=== PATIENT | female | born 1935 | race Caucasian/White ===

== ENCOUNTER 2018-03-10 18:55 | Outpatient (CLI) | payer MEDICARE | END 2018-03-10 18:56 | disposition critical access hospital (66) | LOC: EMS 18:55 | PROVIDERS: ATTEND Surgery | DX: M54.5 Low back pain (principal); R51 Headache; W01.198A Fall on same level from slipping, tripping and stumbling with subsequent striking against other object, initial encounter; Y92.039 Unspecified place in apartment as the place of occurrence of the external cause | CPT/HCPCS: A0425; A0429 ==

== ENCOUNTER 2018-03-10 19:12 | Emergency (ER) | payer MEDICARE, OTHER ==
--- NOTE | 2018-03-10 19:31 | ED Physician Documentation ---
History of Present Illness - Stated complaint Stated Complaint: GLF - HIT HEAD - Chief complaint Chief Complaint: Trauma Hd/Nk - History obtained from History obtained from: Patient, EMS - History of Present Illness Timing: Today Pain level max: 5 Pain level now: 2 - Additonal information Additional information: 82-year-old female presents to the emergency department after a ground-level fall today, striking her head on a 4 x 4. Has a laceration to the forehead. No loss of consciousness. No vomiting. Better with rest and worse with movement. No other injuries Review of Systems Ten Systems: 10 systems reviewed and negative Constitutional: denies: Fever Ears: denies: Ear pain Nose: denies: Rhinorrhea / runny nose, Congestion Throat: denies: Sore throat Respiratory: denies: Cough GI: denies: Abdominal Pain, Nausea, Vomiting, Diarrhea Skin: denies: Rash Musculoskeletal: denies: Neck pain, Back pain, Extremity pain Neurologic: denies: Syncope, Seizure PD PAST MEDICAL HISTORY - Past Medical History Past Medical History: Yes Other Past Medical History: deaf - Present Medications Home Medications: Ambulatory Orders Medication Instructions Recorded Confirmed No Known Home Medications 03/10/18 03/10/18 - Allergies Allergies/Adverse Reactions: Allergies Allergy/AdvReac Type Severity Reaction Status Date / Time No Known Drug Allergies Allergy Verified 03/10/18 19:55 - Living Situation Living Arrangement: reports: At home - Social History Does the pt smoke?: No Does the pt have substance abuse?: No - Family History Family history: reports: Non contributory - Immunizations Immunizations are current?: Yes Immunizations: TDAP current <10years PD ED PE NORMAL - Vitals Vital signs reviewed: Yes - General General: Alert and oriented X 3, No acute distress - HEENT HEENT: PERRL, EOMI, Ears normal, Moist mucous membranes, Pharynx benign, Other (Laceration to forehead. Abrasion from chin up the face to the forehead. No bony tenderness over the face. No scalp hematomas) - Neck Neck: Supple, no meningeal sign, No bony TTP - Cardiac Cardiac: RRR - Respiratory Respiratory: No respiratory distress, Clear bilaterally - Abdomen Abdomen: Soft, Non tender, Non distended - Back Back: No spinal TTP - Derm Derm: Warm and dry - Extremities Extremities: No deformity, No tenderness to palpate - Neuro Neuro: Alert and oriented X 3, fagot heater helper 2-12 intact, No motor deficit, No sensory def icit, Normal speech - Psych Psych: Normal mood, Normal affect Results - Vitals Vitals: Oxygen O2 Source Room air - Rads (name of study) head CT Radiology: Prelim report reviewed, EMP read contemporaneously, See rad report (no acute abnormality) Procedures - Laceration (location) forehead Length in cm: 2 Wound type: Linear, Superficial Neurovascular status: Sensory intact, Motor intact, Vascular intact Wound Preparation: Irrigated copiously NS, Wound explored, To the base. No: FB identified Skin layer closure: Dermabond, Steri strips Other: Patient tolerated well, No complications, Neurovascular intact Complexity: Simple PD MEDICAL DECISION MAKING - ED course Complexity details: reviewed results, re-evaluated patient, considered differential, d/w patient, d/w family ED course: No acute findings on head CT. GCS 15. Forehead laceration repaired. Ambulating in the emergency department without difficulty. Head injury instructions given at bedside to family. Warnings of infection and instructions on wound care given at bedside. Also counseled on how to minimize scarring. Patient and family counseled regarding signs and symptoms for which I believe and urgent re-evaluation would be necessary. Patient with good understanding of and agreement to plan and is comfortable going home at this time This document was made in part using voice recognition software. While efforts are made to proofread this document, sound alike and grammatical errors may occur. Departure - Departure Disposition: 01 Home, Self Care Clinical Impression: Head injury Qualifiers: Encounter type: initial encounter Qualified Code(s): S09.90XA - Unspecified injury of head, initial encounter Forehead laceration Qualifiers: Encounter type: initial encounter Qualified Code(s): S01.81XA - Laceration without foreign body of other part of head, initial encounter Condition: Good Instructions: ED Head Injury Closed, ED Laceration Facial Skin Glue Follow-Up: your,doctor in 1week [Other] Comments: Follow-up with your doctor in 1 week for a wound check. Return if you worsen. Discharge Date/Time: 03/10/18 21:15
--- NOTE | 2018-03-10 20:33 | CT Report ---
Reason: fall, head injury Procedure Date: 03/10/2018 Accession Number: [id number] / [id number] Procedure: CT - Head W/O CPT Code: FULL RESULT: EXAM: CT HEAD EXAM DATE: 03/10/2018 07:35 PM. CLINICAL HISTORY: Fall, head injury. COMPARISON: None. TECHNIQUE: Multiaxial CT images were obtained from the foramen magnum to the vertex. Reformats: Sagittal and coronal. IV contrast: None. In accordance with CT protocol optimization, one or more of the following dose reduction techniques were utilized for this exam: automated exposure control, adjustment of mA and/or KV based on patient size, or use of iterative reconstructive technique. FINDINGS: Parenchyma: No intraparenchymal hemorrhage. No evidence of mass, midline shift, or CT findings of infarction. Nava-white differentiation is distinct. Extraaxial Spaces: Normal for age. No subdural or epidural collections identified. Ventricles: Normal in size and position. Sinuses and Orbits: Imaged paranasal sinuses, orbits, and mastoids show no significant abnormality. Bones: No evidence of fracture or calvarial defect. Other: There is a mild contusion of the frontal scalp. IMPRESSION: No acute intracranial abnormality. RADIA
[2018-03-10 21:15] VITALS: BP 136/117
== END 2018-03-10 21:15 | disposition home or self-care (01) ==
LOC: ED 19:12
DX: S09.90XA Unspecified injury of head, initial encounter (principal); S01.81XA Laceration without foreign body of other part of head, initial encounter; W18.30XA Fall on same level, unspecified, initial encounter; W22.8XXA Striking against or struck by other objects, initial encounter
CPT/HCPCS: 12011; 70450; 99283

== ENCOUNTER 2018-05-13 14:55 | Emergency (ER) | payer MEDICARE ==
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
[2018-05-13 15:36] LABS: BASOPHILS % (AUTO) 0.7 %; EOSINOPHILS # (AUTO) 0.2 10^3/uL (0.0-0.7); HGB - HEMOGLOBIN 14.7 g/dL (12.0-16.0); LYMPHOCYTES # (AUTO) 1.2 10^3/uL (1.5-3.5); LYMPHOCYTES % (AUTO) 18.6 %; MEAN CORPUSCULAR HEMOGLOBIN 31.9 pg (27.0-31.0); MEAN CORPUSCULAR HGB CONC 33.8 g/dL (32.0-36.0); MEAN CORPUSCULAR VOLUME 94.3 fL (81.0-99.0); MONOCYTES # (AUTO) 0.4 10^3/uL (0.0-1.0); MONOCYTES % (AUTO) 6.5 %; NEUTROPHILS # (AUTO) 4.6 10^3/uL (1.5-6.6); NEUTROPHILS % (AUTO) 71.2 %; PLT - PLATELET COUNT 205 10^3/uL (130-450); RED BLOOD COUNT 4.61 10^6/uL (4.20-5.40); RED CELL DISTRIBUTION WIDTH 13.7 % (12.0-15.0); WHITE BLOOD COUNT 6.4 x10^3/uL (4.8-10.8)
[2018-05-13 15:46] LABS: ALBUMIN 3.9 g/dL (3.2-5.5); ALBUMIN/GLOBULIN RATIO 1.2 (1.0-2.2); BILIRUBIN,TOTAL 1.7 mg/dL (0.2-1.0); CALCIUM 9.6 mg/dL (8.5-10.3); CREATININE 0.8 mg/dL (0.4-1.0); TOTAL PROTEIN 7.1 g/dL (6.7-8.2)
[2018-05-13 16:00] LABS: MUDS CUTOFF CONCENTRATIONS CUTOFF CONC BELOW:
[2018-05-13 16:02] LABS: BILIRUBIN,URINE NEGATIVE (NEGATIVE); GLUCOSE, URINE (UA) NEGATIVE (NEGATIVE); KETONES,URINE (UA) TRACE mg/dL (NEGATIVE); LEUKOCYTE ESTERASE, URINE SMALL (NEGATIVE); NITRITE,URINE NEGATIVE (NEGATIVE); OCCULT BLOOD,URINE LARGE (NEGATIVE); PROTEIN,URINE 100 mg/dL (NEGATIVE); UROBILINOGEN,URINE 0.2 (NORMAL) E.U./dL (NORMAL)
[2018-05-13 16:03] LABS: CLARITY,URINE SL. CLOUDY (CLEAR)
[2018-05-13 16:13] LABS: BACTERIA,URINE Rare /HPF (None Seen); CASTS, URINE 6-10 Hyaline Casts /LPF; CRYSTALS,URINE 6-10 Calcium Oxalate /LPF; MUCUS,URINE Few Strands; RBC,URINE 0-5 /HPF (0-5); SQUAMOUS EPITHELIAL CELL,UR FEW Squamous (<= Few)
[2018-05-13 16:20] LABS: AMPHETAMINE SCREEN,URINE NEGATIVE (NEGATIVE); BENZODIAZEPINES SCREEN, URINE NEGATIVE (NEGATIVE); COCAINE SCREEN URINE NEGATIVE (NEGATIVE); METHADONE SCREEN, URINE NEGATIVE (NEGATIVE); METHAMPHETAMINES SCREEN, URINE NEGATIVE (NEGATIVE); OPIATE SCREEN, URINE NEGATIVE (NEGATIVE); OXYCODONE SCREEN, URINE NEGATIVE (NEGATIVE); PROPOXYPHENE SCREEN, URINE NEGATIVE (NEGATIVE); TRICYCLIC ANTIDEPRESSANT,URINE NEGATIVE (NEGATIVE)
[2018-05-13] MEDS ORDERED: NITROFURANTOIN MACRO 100 MG CAPSULE PO STA (16:57)
[2018-05-13] MEDS ORDERED: risperiDONE 1 MG TABLET PO STA (22:28)
[2018-05-14] MEDS: NITROFURANTOIN MACRO 100 MG CAPSULE PO SCH ×2 (09:21→21:07)
[2018-05-14] MEDS ORDERED: NITROFURANTOIN MACRO 100 MG CAPSULE PO STA (17:20)
[2018-05-15] MEDS ORDERED: MAG HYDROX/AL HYDROX/SIMETH 30 ML UDC PO STA (09:08)
[2018-05-15] MEDS: NITROFURANTOIN MACRO 100 MG CAPSULE PO SCH ×2 (09:27→21:32)
--- NOTE | 2018-05-15 09:30 | XRAY Report ---
Reason: chest pain Procedure Date: 05/15/2018 Accession Number: [id number] / [id number] Procedure: XR - Chest 1 View X-Ray CPT Code: 37623 FULL RESULT: EXAM: CHEST RADIOGRAPHY EXAM DATE: 05/15/2018 09:17 AM. CLINICAL HISTORY: Chest pain. COMPARISON: CHEST 1 VIEW 04/10/2018 12:23 PM. TECHNIQUE: 1 view. FINDINGS: Lungs/Pleura: No focal opacities evident. No pleural effusion. No pneumothorax. Mediastinum: Within exam limitations, the cardiomediastinal contour is normal. Other: None. IMPRESSION: Normal single view chest. RADIA
[2018-05-15 09:35] LABS: BASOPHILS % (AUTO) 0.8 %; EOSINOPHILS # (AUTO) 0.1 10^3/uL (0.0-0.7); EOSINOPHILS % (AUTO) 2.5 %; LYMPHOCYTES # (AUTO) 1.1 10^3/uL (1.5-3.5); LYMPHOCYTES % (AUTO) 18.8 %; MEAN CORPUSCULAR HEMOGLOBIN 31.7 pg (27.0-31.0); MEAN CORPUSCULAR HGB CONC 33.3 g/dL (32.0-36.0); MEAN CORPUSCULAR VOLUME 95.1 fL (81.0-99.0); MEAN PLATELET VOLUME 8.2 fL (7.9-10.8); MONOCYTES # (AUTO) 0.4 10^3/uL (0.0-1.0); MONOCYTES % (AUTO) 7.2 %; NEUTROPHILS # (AUTO) 4.1 10^3/uL (1.5-6.6); NEUTROPHILS % (AUTO) 70.7 %; PLT - PLATELET COUNT 187 10^3/uL (130-450); RED BLOOD COUNT 4.41 10^6/uL (4.20-5.40); RED CELL DISTRIBUTION WIDTH 13.6 % (12.0-15.0); WHITE BLOOD COUNT 5.8 x10^3/uL (4.8-10.8)
[2018-05-15 09:43] LABS: ALBUMIN 3.7 g/dL (3.2-5.5); ALBUMIN/GLOBULIN RATIO 1.2 (1.0-2.2); BILIRUBIN,TOTAL 1.2 mg/dL (0.2-1.0); CALCIUM 9.1 mg/dL (8.5-10.3); CREATININE 0.8 mg/dL (0.4-1.0); MAGNESIUM 1.8 mg/dL (1.7-2.8); TOTAL PROTEIN 6.8 g/dL (6.7-8.2)
[2018-05-15] MEDS ORDERED: risperiDONE 1 MG TABLET PO STA (11:45)
[2018-05-15] MEDS ORDERED: HALOPERIDOL 5 MG/ML VIAL IM STA (11:58)
[2018-05-15] MEDS: risperiDONE 1 MG TABLET PO SCH (21:33)
[2018-05-16] MEDS: NITROFURANTOIN MACRO 100 MG CAPSULE PO SCH ×2 (11:27→23:27)
[2018-05-16] MEDS: risperiDONE 1 MG TABLET PO SCH (23:28)
[2018-05-17] MEDS ORDERED: MINERAL OIL ENEMA 133 ML BOTTLE RC STA (09:05)
[2018-05-17] MEDS: NITROFURANTOIN MACRO 100 MG CAPSULE PO SCH ×2 (12:41→21:15)
[2018-05-17] MEDS: risperiDONE 1 MG TABLET PO SCH (21:15)
[2018-05-18] MEDS: NITROFURANTOIN MACRO 100 MG CAPSULE PO SCH (12:51)
[2018-05-18] MEDS: risperiDONE 1 MG TABLET PO SCH (21:32)
[2018-05-19] MEDS: risperiDONE 1 MG TABLET PO SCH (21:29)
[2018-05-20] MEDS: risperiDONE 1 MG TABLET PO SCH (20:13)
--- NOTE | 2018-05-21 06:50 | ED Physician Documentation ---
ED Addendum - Addendum Addendum: 05/21/18 06:50 Patient slept during my shift. No complaints.
--- NOTE | 2018-05-22 18:00 | ED Physician Documentation ---
ED Addendum - Addendum Addendum: There was no change in the patient's status today. She she is periodically ambulated in the hallway, and was pleasantly interactive with staff. 05/22/18 17:59
[2018-05-22] MEDS: risperiDONE 1 MG TABLET PO SCH (21:12)
[2018-05-22 23:34] LABS: BASOPHILS # (AUTO) 0.1 10^3/uL (0.0-0.1); BASOPHILS % (AUTO) 1.3 %; EOSINOPHILS # (AUTO) 0.1 10^3/uL (0.0-0.7); EOSINOPHILS % (AUTO) 1.8 %; HGB - HEMOGLOBIN 14.2 g/dL (12.0-16.0); LYMPHOCYTES # (AUTO) 1.6 10^3/uL (1.5-3.5); LYMPHOCYTES % (AUTO) 28.4 %; MEAN CORPUSCULAR HEMOGLOBIN 32.2 pg (27.0-31.0); MEAN CORPUSCULAR HGB CONC 34.2 g/dL (32.0-36.0); MEAN CORPUSCULAR VOLUME 94.3 fL (81.0-99.0); MEAN PLATELET VOLUME 8.2 fL (7.9-10.8); MONOCYTES # (AUTO) 0.4 10^3/uL (0.0-1.0); MONOCYTES % (AUTO) 7.5 %; NEUTROPHILS # (AUTO) 3.5 10^3/uL (1.5-6.6); PLT - PLATELET COUNT 182 10^3/uL (130-450); RED BLOOD COUNT 4.42 10^6/uL (4.20-5.40); RED CELL DISTRIBUTION WIDTH 13.7 % (12.0-15.0); WHITE BLOOD COUNT 5.8 x10^3/uL (4.8-10.8)
[2018-05-22 23:51] LABS: ALBUMIN 3.9 g/dL (3.2-5.5); ALBUMIN/GLOBULIN RATIO 1.2 (1.0-2.2); BILIRUBIN,TOTAL 1.6 mg/dL (0.2-1.0); CALCIUM 9.7 mg/dL (8.5-10.3); CREATININE 0.7 mg/dL (0.4-1.0); TOTAL PROTEIN 7.1 g/dL (6.7-8.2)
--- NOTE | 2018-05-23 00:04 | XRAY Report ---
Reason: chest pain Procedure Date: 05/22/2018 Accession Number: [id number] / [id number] Procedure: XR - Chest 1 View X-Ray CPT Code: 04813 FULL RESULT: EXAM: CHEST RADIOGRAPHY EXAM DATE: 05/22/2018 11:29 PM. CLINICAL HISTORY: Chest pain. COMPARISON: CHEST 1 VIEW 05/15/2018 9:08 AM. TECHNIQUE: 1 view. FINDINGS: Lungs/Pleura: No focal opacities evident. No pleural effusion. No pneumothorax. Mediastinum: Within exam limitations, the cardiomediastinal contour is normal. Other: None. IMPRESSION: Normal single view chest. RADIA
--- NOTE | 2018-05-23 08:41 | ED Physician Documentation ---
ED Addendum - Addendum Addendum: 05/23/18 08:39 Patient was getting up from her bed with increasing frequency in the beginning of my shift (8 PM - 7 AM) and thus she was walked down the hallway by hospital staff at 23:10; per staff that accompanied her while she was ambulating, patient suddenly became weak and required assistance to go to ground. She was less responsive but did not have LOC, did not fall to ground. EKG shows no changes compared to previous EKG and blood tests do not reveal any concerning acute abn ormality. She has no focal or lateralizing neurologic abnormalities/findings on exam and her mental status is comparable to previous.
[2018-05-23] MEDS: risperiDONE 1 MG TABLET PO SCH (20:55)
--- NOTE | 2018-05-24 06:54 | ED Physician Documentation ---
ED Addendum - Addendum Addendum: 05/24/18 06:54 Patient resting comfortably throughout the night. Placement pending at time of signout to oncoming provider.
[2018-05-24] MEDS: risperiDONE 1 MG TABLET PO SCH ×2 (21:28→21:47)
--- NOTE | 2018-05-25 06:59 | ED Physician Documentation ---
ED Addendum - Addendum Addendum: 05/25/18 06:59 Patient resting comfortably. No complaints. Signed out to incoming provider.
--- NOTE | 2018-05-26 05:37 | ED Physician Documentation ---
ED Addendum - Addendum Addendum: 05/26/18 05:37 Patient resting comfortably. Pending placement at time of sign out to incoming provider.
[2018-05-26] MEDS ORDERED: POLYETHYLENE GLYCOL 3350 17 GM PACKET PO PRN (23:45)
[2018-05-26] MEDS ORDERED: DOCUSATE SODIUM 100 MG CAPSULE PO STA (23:45)
[2018-05-26] MEDS ORDERED: SENNA 8.6 MG TABLET PO STA (23:45)
[2018-05-27] MEDS: risperiDONE 1 MG TABLET PO SCH ×2 (03:37→21:47)
--- NOTE | 2018-05-27 05:55 | ED Physician Documentation ---
ED Addendum - Addendum Addendum: 05/27/18 05:55 Patient resting comfortably with no complaints. Placement pending.
[2018-05-28] MEDS: risperiDONE 1 MG TABLET PO SCH (21:09)
--- NOTE | 2018-05-29 05:13 | ED Physician Documentation ---
ED Addendum - Addendum Addendum: 05/29/18 05:12 Intermittently sleeping and walking around the department. She is cooperative and pleasant with staff.
[2018-05-30] MEDS: risperiDONE 1 MG TABLET PO SCH ×2 (04:02→21:00)
--- NOTE | 2018-05-30 07:08 | ED Physician Documentation ---
ED Addendum - Addendum Addendum: 05/30/18 06:49 Slept for most of my shift (8 PM 05/29 - 7 AM 05/30), woke to use bathroom and was able to ambulate to and from bathroom without assistance. Continues to await placement.
--- NOTE | 2018-05-31 07:49 | ED Physician Documentation ---
ED Addendum - Addendum Addendum: 05/31/18 07:48 Patient slept quietly for majority of my shift (8 PM 05/30/18 - 7 AM 05/31/18). She got up and ambulated to and from bathroom without assistance and was in no apparent distress. She continues to await placement by JILLIAN.
[2018-05-31] MEDS: risperiDONE 1 MG TABLET PO SCH (21:30)
[2018-06-02] MEDS: risperiDONE 1 MG TABLET PO SCH (21:20)
--- NOTE | 2018-06-03 02:14 | ED Physician Documentation ---
ED Addendum - Addendum Addendum: 06/03/18 02:13 Per nursing notes and social work notes, the patient has been pleasantly living here in the ER without any noted outbursts or such. She is needed little redirection. She has been eating reasonably. Social work notes state they had been making attempts at placement for the patient. They are also working with the family to see if they can bring her back home as an interim while working on placement. They will be meeting on 06/03/2018 in the daughter apparently is co willow to visit the patient. The patient has been receiving her usual medications.
[2018-06-04] MEDS: risperiDONE 1 MG TABLET PO SCH ×2 (00:23→21:30)
--- NOTE | 2018-06-04 06:48 | ED Physician Documentation ---
ED Addendum - Addendum Addendum: 06/04/18 06:47 Continues to await placement. Patient slept quietly for most of my shift (overnight 06/03/18-06/04/18), got up to use bathroom without assistance or difficulty during the shift. Appears comfortable/NAD, vital signs stable and afebrile
--- NOTE | 2018-06-05 06:22 | ED Physician Documentation ---
ED Addendum - Addendum Addendum: 06/05/18 06:22 Patient slept quietly for most of my overnight shift (4 8 PM - 4 7 AM), ambulated to and from bathroom during the shift without difficulty. Continues to await placement.
--- NOTE | 2018-06-05 13:37 | Discharge Plan ---
Discharge Plan for SNF / ROSS - Discharge Plan And Transition Orders Condition: Stable Allergies and Adverse Reactions: Allergies Allergy/AdvReac Type Severity Reaction Status Date / Time No Known Drug Allergies Allergy Verified 05/13/18 15:03 - SNF / ROSS Transition Orders Medicare Certification Statement: I certify that Post Hospital correction care is medically necessary on a continuing basis for any of the conditions for which she/he is receiving care during hospitalization. Notify PCP of admission and forward orders to primary provider for signature. Other Notification Orders: Call PCP immediately if patient develops dyspnea, chest pain/tightness or edema. Additional Bowel Program Orders: If no BM after 2 days, nurse may give M.O.M. 30ml PO PRN and/or ducolax Supp 1 AK and/or LEIGHTON 250mg P.O., and/or senna 1-2 tabs PO. On day 3 nurse may give repeat above order until residents constipation is resolved. Medication Orders: PLEASE REFER TO THE DISCHARGE MEDICATION LIST.
[2018-06-06] MEDS: risperiDONE 1 MG TABLET PO SCH (21:05)
[2018-06-07] MEDS: risperiDONE 1 MG TABLET PO SCH (21:26)
[2018-06-09] MEDS ORDERED: ACETAMINOPHEN 325 MG TABLET PO STA (12:30)
[2018-06-09] MEDS: risperiDONE 1 MG TABLET PO SCH (21:30)
[2018-06-10] MEDS: risperiDONE 1 MG TABLET PO SCH (20:50)
[2018-06-11] MEDS: risperiDONE 1 MG TABLET PO SCH (21:13)
[2018-06-12] MEDS ORDERED: ACETAMINOPHEN 325 MG TABLET PO STA (16:53)
[2018-06-13] MEDS: risperiDONE 1 MG TABLET PO SCH (20:48)
[2018-06-14] MEDS: risperiDONE 1 MG TABLET PO SCH (19:20)
[2018-06-15] MEDS: risperiDONE 1 MG TABLET PO SCH (20:59)
[2018-06-16] MEDS ORDERED: ACETAMINOPHEN 325 MG TABLET PO STA (15:21)
[2018-06-16] MEDS: risperiDONE 1 MG TABLET PO SCH (20:54)
[2018-06-17] MEDS ORDERED: ACETAMINOPHEN 325 MG TABLET PO STA (10:35)
[2018-06-23] MEDS ORDERED: ACETAMINOPHEN 325 MG TABLET PO STA (08:10)
[2018-06-23 08:56] LABS: BILIRUBIN,URINE NEGATIVE (NEGATIVE); GLUCOSE, URINE (UA) NEGATIVE (NEGATIVE); KETONES,URINE (UA) NEGATIVE (NEGATIVE); LEUKOCYTE ESTERASE, URINE NEGATIVE (NEGATIVE); NITRITE,URINE NEGATIVE (NEGATIVE); OCCULT BLOOD,URINE SMALL (NEGATIVE); PROTEIN,URINE NEGATIVE (NEGATIVE); UROBILINOGEN,URINE 0.2 (NORMAL) E.U./dL (NORMAL)
[2018-06-23 08:58] LABS: CLARITY,URINE CLEAR (CLEAR)
[2018-06-23 09:14] LABS: BACTERIA,URINE Rare /HPF (None Seen); SQUAMOUS EPITHELIAL CELL,UR FEW Squamous (<= Few)
[2018-06-25 08:34] VITALS: BP 139/69
--- NOTE | 2018-06-25 09:52 | ED Physician Documentation ---
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 - Present Medications Home Medications: Ambulatory Orders Medication Instructions Recorded Confirmed Lisinopril 10 mg PO DAILY 06/14/18 06/14/18 - Allergies Allergies/Adverse Reactions: Allergies Allergy/AdvReac Type Severity Reaction Status Date / Time No Known Drug Allergies Allergy Verified 05/13/18 15:03 - Social History Does the pt smoke?: No Smoking Status: Never smoker Does the pt drink ETOH?: No Does the pt have substance abuse?: No - Immunizations Immunizations are current?: Yes Immunizations: TDAP current <10years - POLST Patient has POLST: No Results - Vitals Vitals: Vital Signs - 24 hr 06/24/18 06/25/18 06/25/18 18:54 02:02 03:29 Temperature 36.7 C Heart Rate 72 59 L Respiratory 16 16 16 Rate Blood Pressure 140/60 H 138/73 H O2 Saturation 100 98 06/25/18 06/25/18 06/25/18 04:30 05:21 06:10 Temperature Heart Rate Respiratory 15 14 15 Rate Blood Pressure O2 Saturation 06/25/18 08:33 Temperature 36.5 C Heart Rate 60 Respiratory 14 Rate Blood Pressure 139/69 H O2 Saturation 98 Oxygen O2 Source Room air - Labs Labs: Microbiology 05/13/18 15:50 Urine Culture - Final Urine,Clean Catch 10-50,000 COLONIES/ML Polymicrobial growth including potential pathogens. This is suggestive of skin or other contamination. Laboratory Tests 05/13/18 05/13/18 05/13/18 15:25 15:25 15:25 WBC 6.4 RBC 4.61 Hgb 14.7 Hct 43.5 MCV 94.3 MCH 31.9 H MCHC 33.8 RDW 13.7 Plt Count 205 MPV 8.0 Neut # (Auto) 4.6 Lymph # (Auto) 1.2 L [place] # (Auto) 0.4 Eos # (Auto) 0.2 Baso # (Auto) 0.0 Absolute Nucleated RBC 0.00 Nucleated RBC % 0.0 Sodium 139 Potassium 3.5 Chloride 102 Carbon Dioxide 26 Anion Gap 11.0 BUN 16 Creatinine 0.8 Estimated GFR (MDRD) 68 L Glucose 129 H POC Whole Bld Glucose Calcium 9.6 Magnesium Total Bilirubin 1.7 H AST 22 ALT 14 Alkaline Phosphatase 60 Troponin I B-Natriuretic Peptide Total Protein 7.1 Albumin 3.9 Globulin 3.2 Albumin/Globulin Ratio 1.2 Lipase 61 H TSH 2.40 Urine Color Urine Clarity Urine pH Ur Specific [place] Urine Protein Urine Glucose (UA) Urine Ketones Urine Occult Blood Urine Nitrite Urine Bilirubin Urine Urobilinogen Ur Leukocyte Esterase Urine RBC Urine WBC Ur Squamous Epith Cells Urine Crystals Urine Bacteria Urine Casts Urine Mucus Ur Microscopic Review Urine Culture Comments Urine Opiates Screen Ur Oxycodone Screen Urine Methadone Screen Ur Propoxyphene Screen Ur Barbiturates Screen Ur Tricyclics Screen Ur Phencyclidine Scrn Ur Amphetamine Screen U Methamphetamines Scrn U Benzodiazepines Scrn Urine Cocaine Screen U Cannabinoids Screen 05/13/18 05/15/18 05/15/18 15:50 09:06 09:25 WBC RBC Hgb Hct MCV MCH MCHC RDW Plt Count MPV Neut # (Auto) Lymph # (Auto) [place] # (Auto) Eos # (Auto) Baso # (Auto) Absolute Nucleated RBC Nucleated RBC % Sodium Potassium Chloride Carbon Dioxide Anion Gap BUN Creatinine Estimated GFR (MDRD) Glucose POC Whole Bld Glucose 167 H Calcium Magnesium Total Bilirubin AST ALT Alkaline Phosphatase Troponin I < 0.04 B-Natriuretic Peptide Total Protein Albumin Globulin Albumin/Globulin Ratio Lipase TSH Urine Color YELLOW Urine Clarity SL. CLOUDY Urine pH 6.0 Ur Specific [place] >=1.030 H Urine Protein 100 H Urine Glucose (UA) NEGATIVE Urine Ketones TRACE Urine Occult Blood LARGE H Urine Nitrite NEGATIVE Urine Bilirubin NEGATIVE Urine Urobilinogen 0.2 (NORMAL) Ur Leukocyte Esterase SMALL H Urine RBC 0-5 Urine WBC 11-25 H Ur Squamous Epith Cells FEW Squamous Urine Crystals 6-10 Calcium Oxalate Urine Bacteria Rare Urine Casts 6-10 Hyaline Casts Urine Mucus Few Strands Ur Microscopic Review Urine Culture Comments INDICATED Urine Opiates Screen NEGATIVE Ur Oxycodone Screen NEGATIVE Urine Methadone Screen NEGATIVE Ur Propoxyphene Screen NEGATIVE Ur Barbiturates Screen NEGATIVE Ur Tricyclics Screen NEGATIVE Ur Phencyclidine Scrn NEGATIVE Ur Amphetamine Screen NEGATIVE U Methamphetamines Scrn NEGATIVE U Benzodiazepines Scrn NEGATIVE Urine Cocaine Screen NEGATIVE U Cannabinoids Screen NEGATIVE 05/15/18 05/15/18 05/15/18 09:25 09:25 09:25 WBC 5.8 RBC 4.41 Hgb 14.0 Hct 42.0 MCV 95.1 MCH 31.7 H MCHC 33.3 RDW 13.6 Plt Count 187 MPV 8.2 Neut # (Auto) 4.1 Lymph # (Auto) 1.1 L [place] # (Auto) 0.4 Eos # (Auto) 0.1 Baso # (Auto) 0.0 Absolute Nucleated RBC 0.00 Nucleated RBC % 0.0 Sodium 139 Potassium 4.0 Chloride 101 Carbon Dioxide 25 Anion Gap 13.0 BUN 11 Creatinine 0.8 Estimated GFR (MDRD) 68 L Glucose 143 H POC Whole Bld Glucose Calcium 9.1 Magnesium 1.8 Total Bilirubin 1.2 H AST 24 ALT 13 Alkaline Phosphatase 62 Troponin I B-Natriuretic Peptide 55 Total Protein 6.8 Albumin 3.7 Globulin 3.1 Albumin/Globulin Ratio 1.2 Lipase 62 H TSH Urine Color Urine Clarity Urine pH Ur Specific [place] Urine Protein Urine Glucose (UA) Urine Ketones Urine Occult Blood Urine Nitrite Urine Bilirubin Urine Urobilinogen Ur Leukocyte Esterase Urine RBC Urine WBC Ur Squamous Epith Cells Urine Crystals Urine Bacteria Urine Casts Urine Mucus Ur Microscopic Review Urine Culture Comments Urine Opiates Screen Ur Oxycodone Screen Urine Methadone Screen Ur Propoxyphene Screen Ur Barbiturates Screen Ur Tricyclics Screen Ur Phencyclidine Scrn Ur Amphetamine Screen U Methamphetamines Scrn U Benzodiazepines Scrn Urine Cocaine Screen U Cannabinoids Screen 05/22/18 05/22/18 05/22/18 23:11 23:20 23:20 WBC 5.8 RBC 4.42 Hgb 14.2 Hct 41.7 MCV 94.3 MCH 32.2 H MCHC 34.2 RDW 13.7 Plt Count 182 MPV 8.2 Neut # (Auto) 3.5 Lymph # (Auto) 1.6 [place] # (Auto) 0.4 Eos # (Auto) 0.1 Baso # (Auto) 0.1 Absolute Nucleated RBC 0.01 Nucleated RBC % 0.1 Sodium 136 Potassium 4.0 Chloride 99 L Carbon Dioxide 28 Anion Gap 9.0 BUN 14 Creatinine 0.7 Estimated GFR (MDRD) 80 L Glucose 142 H POC Whole Bld Glucose 155 H Calcium 9.7 Magnesium Total Bilirubin 1.6 H AST 21 ALT 17 Alkaline Phosphatase 66 Troponin I B-Natriuretic Peptide Total Protein 7.1 Albumin 3.9 Globulin 3.2 Albumin/Globulin Ratio 1.2 Lipase 53 H TSH Urine Color Urine Clarity Urine pH Ur Specific [place] Urine Protein Urine Glucose (UA) Urine Ketones Urine Occult Blood Urine Nitrite Urine Bilirubin Urine Urobilinogen Ur Leukocyte Esterase Urine RBC Urine WBC Ur Squamous Epith Cells Urine Crystals Urine Bacteria Urine Casts Urine Mucus Ur Microscopic Review Urine Culture Comments Urine Opiates Screen Ur Oxycodone Screen Urine Methadone Screen Ur Propoxyphene Screen Ur Barbiturates Screen Ur Tricyclics Screen Ur Phencyclidine Scrn Ur Amphetamine Screen U Methamphetamines Scrn U Benzodiazepines Scrn Urine Cocaine Screen U Cannabinoids Screen 05/22/18 06/23/18 23:20 08:20 WBC RBC Hgb Hct MCV MCH MCHC RDW Plt Count MPV Neut # (Auto) Lymph # (Auto) [place] # (Auto) Eos # (Auto) Baso # (Auto) Absolute Nucleated RBC Nucleated RBC % Sodium Potassium Chloride Carbon Dioxide Anion Gap BUN Creatinine Estimated GFR (MDRD) Glucose POC Whole Bld Glucose Calcium Magnesium Total Bilirubin AST ALT Alkaline Phosphatase Troponin I < 0.04 B-Natriuretic Peptide Total Protein Albumin Globulin Albumin/Globulin Ratio Lipase TSH Urine Color YELLOW Urine Clarity CLEAR Urine pH 6.0 Ur Specific [place] 1.025 Urine Protein NEGATIVE Urine Glucose (UA) NEGATIVE Urine Ketones NEGATIVE Urine Occult Blood SMALL H Urine Nitrite NEGATIVE Urine Bilirubin NEGATIVE Urine Urobilinogen 0.2 (NORMAL) Ur Leukocyte Esterase NEGATIVE Urine RBC 6-10 H Urine WBC 0-3 Ur Squamous Epith Cells FEW Squamous Urine Crystals Urine Bacteria Rare Urine Casts Urine Mucus Ur Microscopic Review INDICATED Urine Culture Comments NOT INDICATED Urine Opiates Screen Ur Oxycodone Screen Urine Methadone Screen Ur Propoxyphene Screen Ur Barbiturates Screen Ur Tricyclics Screen Ur Phencyclidine Scrn Ur Amphetamine Screen U Methamphetamines Scrn U Benzodiazepines Scrn Urine Cocaine Screen U Cannabinoids Screen Departure - Departure Disposition: 01 Home, Self Care Clinical Impression: UTI (urinary tract infection) Qualifiers: Urinary tract infection type: site unspecified Hematuria presence: without hematuria Qualified Code(s): N39.0 - Urinary tract infection, site not specified Dementia Qualifiers: Dementia type: Alzheimer's disease Alzheimer's disease onset: other onset Dementia behavioral disturbance: with behavioral disturbance Qualified Code(s): G30.8 - Other Alzheimer's disease Condition: Stable Instructions: ED Dementia Caregiver Support Follow-Up: ARIANA BURGESS [Primary Care Provider] - Comments: You have been accepted for placement at [facility] assisted living facility. Your daughter will transport you there from the emergency department. Follow-up with your primary physician as planned. Return to the emergency department if you develop concerning symptoms.
== END 2018-06-25 10:17 | disposition home or self-care (01) ==
LOC: EDUNIT# → ED 14:55
DX: Z02.2 Encounter for examination for admission to residential institution (principal); N39.0 Urinary tract infection, site not specified; G30.8 Other Alzheimer's disease; R53.1 Weakness
CPT/HCPCS: 36415; 71045; 80053; 81001; 83690; 83735; 83880; 84484; 85025; 87086; 93005; 96372; 99285; A9270; 80306; 81003; 84443

== ENCOUNTER 2021-12-04 10:06 | Outpatient (CLI) | payer MEDICARE, MEDICAID | END 2021-12-04 10:07 | disposition critical access hospital (66) | LOC: EMS 10:06 | DX: M54.50 Low back pain, unspecified (principal); R53.83 Other fatigue | CPT/HCPCS: A0425; A0429 ==

== ENCOUNTER 2021-12-04 10:27 | Emergency (ER) | payer MEDICARE, MEDICAID ==
[2021-12-04] MEDS ORDERED: ACETAMINOPHEN 325 MG TABLET PO STA (10:37)
--- NOTE | 2021-12-04 10:38 | ED Physician Documentation ---
PD HPI Fall - Stated complaint Stated Complaint: FOUND DOWN - History obtained from History obtained from: Patient (dementia and deaf, so interaction with some sign language and gestures.), EMS, Caregiver - History of Present Illness Mechanism of injury: Unknown Fall distance: Standing position Where injury occurred: Home (SNF out of room taking a walk, and then staff noted her on floor.) Timing - onset: Today (within the half hour prior to EMS called) Injury(ies) location: Head, Back (hard to tell where she is hurting. Seemed to grimace when lower back palpated, but this is common according to staff. When asked if she had any pain, she gestured to front of head.) Associated symptoms: No: AMS (dementia/alzheimers adn is deaf with indistinct sign language gestures, per staff/EMS.) Worsens with: Palpation (in lower back.) Review of Systems Unable to obtain: Dementia, Other (from caregivers to EMS) Constitutional: denies: Fever Ears: reports: Loss of hearing (lifelong) Respiratory: denies: Dyspnea, Cough GI: denies: Vomiting Skin: denies: Rash, Abrasion (s) Neurologic: denies: Focal weakness PD PAST MEDICAL HISTORY - Past Medical History Cardiovascular: None Respiratory: None Neuro: Dementia Endocrine/Autoimmune: None GI: Diverticulitis 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 : 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 HEENT: Chronic hearing loss, Other Psych: Depression Musculoskeletal: Osteoarthritis Derm: None - Past Surgical History Past Surgical History: Yes /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 - Present Medications Home Medications: Ambulatory Orders Medication Instructions Recorded Confirmed lisinopriL [Lisinopril] 10 mg PO DAILY 06/14/18 12/04/21 QUEtiapine [SEROquel] 25 mg PO BID 12/04/21 12/04/21 - Allergies Allergies/Adverse Reactions: Allergies Allergy/AdvReac Type Severity Reaction Status Date / Time No Known Drug Allergies Allergy Verified 12/04/21 10:41 - Social History Does the pt smoke?: No Smoking Status: Never smoker Does the pt drink ETOH?: No Does the pt have substance abuse?: No - Immunizations Immunizations are current?: Yes Immunizations: TDAP current <10years - POLST Patient has POLST: No PD ED PE NORMAL - Vitals Vital signs reviewed: Yes - General General: No acute distress, Well developed/nourished, Other (visually attentive to surroundings. Makes some somewhat indistinct hand gestures, but does relay "pain" gesture and when I ask if she has pain anywhere, she points to forehead. ) - HEENT HEENT: Atraumatic - Neck Neck: No bony TTP - Cardiac Cardiac: RRR - Respiratory Respiratory: Clear bilaterally, Other (no chestwall tenderness. ) - Abdomen Abdomen: Soft, Non tender - Back Back: No CVA TTP, Other (some tenderness without noted bruising/dfeformity in mid lumbar area. 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 ), No sensory deficit Results - Vitals Vitals: Vital Signs - 24 hr 12/04/21 12/04/21 10:34 12:31 Temperature 36.9 C 36.8 C Heart Rate 67 55 L Respiratory 16 14 Rate Blood Pressure 99/59 L 113/59 L O2 Saturation 99 100 Oxygen O2 Source Room air - Labs Labs: Laboratory Tests 12/04/21 12/04/21 10:45 10:45 WBC 4.5 L RBC 4.10 L Hgb 13.1 Hct 39.8 MCV 97.1 MCH 32.0 H MCHC 32.9 RDW 12.6 Plt Count 174 MPV 9.4 Neut # (Auto) 3.1 Lymph # (Auto) 0.7 L [place] # (Auto) 0.3 Eos # (Auto) 0.2 Baso # (Auto) 0.0 Absolute Nucleated RBC 0.00 Nucleated RBC % 0.0 Sodium 140 Potassium 3.7 Chloride 102 Carbon Dioxide 31 Anion Gap 7.0 BUN 23 H Creatinine 0.7 Estimated GFR (MDRD) 79 L Glucose 108 H Calcium 8.9 Total Bilirubin 1.1 H AST 14 ALT 10 Alkaline Phosphatase 73 Total Protein 6.2 L Albumin 3.5 Globulin 2.7 Albumin/Globulin Ratio 1.3 Lipase 50 - Rads (name of study) head CT Radiology: Prelim report reviewed (no acute process), See rad report lumbar CT Radiology: Prelim report reviewed (degenerative changes, no fractures. ), See rad report PD MEDICAL DECISION MAKING - ED course Complexity details: reviewed results, considered differential Departure - Departure Disposition: 01 Home, Self Care Clinical Impression: Fall Qualifiers: Encounter type: initial encounter Qualified Code(s): W19.XXXA - Unspecified fall, initial encounter Low back pain Qualifiers: Chronicity: unspecified Back pain laterality: unspecified Sciatica presence: without sciatica Qualified Code(s): M54.50 - Low back pain, unspecified Condition: Stable Record reviewed to determine appropriate education?: Yes Comments: Your basic blood count and chemistry blood panel are normal. Scans of your low back and head did not show any acute abnormalities. There is some arthritis in the low back. No signs of a acute injury. Continue your current usual medications. Tylenol if needed for pains. Discharge Date/Time: 12/04/21 12:38
[2021-12-04 10:52] LABS: BASOPHILS % (AUTO) 0.7 %; EOSINOPHILS # (AUTO) 0.2 10^3/uL (0.0-0.7); EOSINOPHILS % (AUTO) 4.9 %; HCT - HEMATOCRIT 39.8 % (37.0-47.0); HGB - HEMOGLOBIN 13.1 g/dL (12.0-16.0); LYMPHOCYTES # (AUTO) 0.7 10^3/uL (1.5-3.5); LYMPHOCYTES % (AUTO) 16.6 %; MEAN CORPUSCULAR HGB CONC 32.9 g/dL (32.0-36.0); MEAN CORPUSCULAR VOLUME 97.1 fL (81.0-99.0); MEAN PLATELET VOLUME 9.4 fL (7.9-10.8); MONOCYTES # (AUTO) 0.3 10^3/uL (0.0-1.0); MONOCYTES % (AUTO) 7.4 %; NEUTROPHILS # (AUTO) 3.1 10^3/uL (1.5-6.6); NEUTROPHILS % (AUTO) 70.2 %; PLT - PLATELET COUNT 174 10^3/uL (130-450); RED CELL DISTRIBUTION WIDTH 12.6 % (12.0-15.0); WHITE BLOOD COUNT 4.5 x10^3/uL (4.8-10.8)
[2021-12-04 11:07] LABS: ALBUMIN 3.5 g/dL (3.2-5.5); ALBUMIN/GLOBULIN RATIO 1.3 (1.0-2.2); BILIRUBIN,TOTAL 1.1 mg/dL (0.2-1.0); CALCIUM 8.9 mg/dL (8.5-10.3); CREATININE 0.7 mg/dL (0.4-1.0); POTASSIUM 3.7 mmol/L (3.5-5.0); TOTAL PROTEIN 6.2 g/dL (6.7-8.2)
--- NOTE | 2021-12-04 11:27 | CT Report ---
PROCEDURE: HEAD WO INDICATIONS: fall with some headach TECHNIQUE: Noncontrast 4.5 mm thick angled axial sections acquired from the foramen magnum to the vertex. For r adiation dose reduction, the following was used: automated exposure control, adjustment of mA and/or kV according to patient size. COMPARISON: None. FINDINGS: Image quality: Excellent. The ventricular system and cortical sulci demonstrate atrophy, consistent for patient's stated age. There are areas of hypodensity in the periventricular and subcortical white matter. There is no acut e intra or extra-axial fluid collection. No acute hemorrhage, mass lesion or midline shift. Brainst em is unremarkable. Globes are symmetrical. Sinuses are aerated. Soft tissue density is noted in the external auditory ca nals bilaterally. Osseous structures are intact. IMPRESSION: 1. No acute intracranial process. 2. Moderate atrophy and chronic microvascular ischemic changes. 3. Soft tissue density within the external auditory canal suggestive of cellular debris/cerumen. Dir ect visualization is recommended. Reviewed by: Livier Rinaldi MD on 12/04/2021 11:26 AM PDT Approved by: Livier Rinaldi MD on 12/04/2021 11:26 AM PDT Station ID: [id number]
--- NOTE | 2021-12-04 11:37 | CT Report ---
PROCEDURE: LUMBAR SPINE WO INDICATIONS: fall with increased low back pain/tender TECHNIQUE: Noncontrast 3 mm thick sections acquired from the T12 level to the sacrum. Sagittal and coronal refo rmats were constructed. For radiation dose reduction, the following was used: automated exposure co ntrol, adjustment of mA and/or kV according to patient size. COMPARISON: None. FINDINGS: Image quality: Excellent. Bones: There is normal bony alignment. No acute vertebral body compression fractures. No suspiciou s lytic or blastic bony lesions. Multilevel degenerative disc space narrowing is present most severe at L3-4. Multilevel anterior osteophytes are present. Multilevel disc bulges as well as foraminal narrowing are present. Scattered levels of mild to modera te spinal stenosis are also present. No pars defects. Soft tissues: No retroperitoneal masses or hematomas. Visualized aorta is normal in caliber. IMPRESSION: Multilevel degenerative changes without visualized fracture. Reviewed by: Livier Rinaldi MD on 12/04/2021 11:36 AM PDT Approved by: Livier Rinaldi MD on 12/04/2021 11:36 AM PDT Station ID: [id number]
[2021-12-04 12:31] VITALS: BP 113/59
== END 2021-12-04 12:38 | disposition home or self-care (01) ==
LOC: EDUNIT# → ED 10:27
DX: M54.50 Low back pain, unspecified (principal); W19.XXXA Unspecified fall, initial encounter
CPT/HCPCS: 36415; 70450; 72131; 80053; 83690; 85025; 99282; 99284; A9270

== ENCOUNTER 2021-12-04 12:38 | Outpatient (CLI) | payer MEDICARE, MEDICAID | END 2021-12-04 12:39 | disposition home or self-care (01) | LOC: EMS 12:38 | PROVIDERS: ATTEND Emergency Medicine | DX: R53.1 Weakness (principal); R41.0 Disorientation, unspecified | CPT/HCPCS: A0425; A0428 ==

== ENCOUNTER 2022-06-03 21:07 | Outpatient (CLI) | payer MEDICARE, MEDICAID | END 2022-06-03 21:08 | disposition EMS.NT | LOC: EMS 21:07 | DX: R07.81 Pleurodynia (principal); W19.XXXA Unspecified fall, initial encounter; Y92.092 Bedroom in other non-institutional residence as the place of occurrence of the external cause ==

== ENCOUNTER 2022-12-20 08:45 | Outpatient (CLI) | payer MEDICARE, MEDICAID ==
[2022-12-20] MEDS ORDERED: LIDOCAINE-MPF 1% 5 ML VIAL ONE (09:29)
[2022-12-20] MEDS ORDERED: LIDOCAINE 1%-EPI 1:100000 50 ML VIAL ONE (09:29)
[2022-12-20] MEDS ORDERED: LIDOCAINE-MPF 1% 5 ML VIAL TD ONE (11:34)
[2022-12-20] MEDS ORDERED: LIDOCAINE 1%-EPI 1:100000 50 ML VIAL SUBQ ONE (12:00)
--- NOTE | 2022-12-24 10:18 | Mammography Report ---
UNILATERAL LEFT DIGITAL DIAGNOSTIC MAMMOGRAM WITH EXAGGERATED CC POST-PROCEDURE IMAGING FOR MARKER PL ACEMENT: 12/20/2022 CLINICAL: Post left breast ultrasound biopsy clip placement imaging. Comparison is made to exam dated: 11/22/2022 mammogram - [facility]. The left breast is heterogeneously dense, which may obscure small masses (category c / 51-75% glandul ar tissue). There is a marker clip in the left breast sub-areolar depth central to the nipple seen on the cranioc audal view only. This marker clip placement is migrated anteriorly from the bx site. IMPRESSION: POST PROCEDURE MAMMOGRAM FOR MARKER PLACEMENT Marker clip placement in the left breast sub-areolar depth central to the nipple seen on the cranioca udal view only is migrated anteriorly from biopsy site. This exam was interpreted at Station ID: [id number]. NOTE: For mammograms, a report in lay terms will be sent to the patient. Approximately 15% of breast malignancies will not be visualized mammographically. In the management of a palpable breast mass, a negative mammogram must not discourage biopsy of a clinically suspicious lesion. Electronically Signed By: Livier Rinaldi M.D. [facility]/:12/20/2022 15:53:53 ACR BI-RADS Category Post-procedure mammogram for marker placement PARENCHYMAL PATTERN: (D) - The breast(s) demonstrate(s) heterogeneously dense fibroglandular al davis. BI-RADS CATEGORY: () - Unspecified - other recall n/a LATERALITY: (B)
--- NOTE | 2022-12-26 15:33 | Ultrasound Report ---
ULTRASOUND GUIDED BIOPSY LEFT BREAST WITH MARKING DEVICE INSERTED: 12/20/2022 CLINICAL: Left breast mass. PATIENT CONSENT: Risks (minor bleeding, infection, vasovagal reaction and repeat procedure), benefits and alternatives were explained to the patient and written informed consent was obtained. Correlation is made to exams dated: 11/22/2022 ultrasound and 11/22/2022 mammogram - [facility]. An ultrasound guided biopsy using real-time ultrasound was performed for the palpable irregular shape d mass located in the left breast central to the nipple in the retroareolar region. This was describ ed on the previous mammography and ultrasound reports. The skin was prepped in the usual manner. Lo kaley anesthetic was administered to the access site. The abnormality was approached from the lateral aspect. A biopsy needle was placed adjacent to the abnormality under ultrasound guidance. Once the needle was documented to be in the correct location, a specimen was obtained using a BARD biopsy janeen ce. A titanium clip was inserted into the biopsy cavity. A sterile dressing was applied to the acce ss site. The specimen was sent to the laboratory for pathological analysis. IMPRESSION: ULTRASOUND GUIDED BIOPSY BENIGN Ultrasound guided biopsy of the mass in the left breast central to the nipple in the retroareolar reg ion was successful. Pathology indicates benign "fibroadipose tissue, negative for neoplasm." Pathology results are discor dant with imaging findings. Recommend repeat ultrasound-guided biopsy versus surgical referral for possible incisional or punch b iopsy as the mass appears to be involving the dermis on the prior ultrasound. This exam was interpreted at Station ID: [id number]. Livier Silverman M.D. [facility]/:12/26/2022 14:58:24 BI-RADS CATEGORY: () - Biopsy [id number] Immediate follow-up LATERALITY: (L)
== END 2022-12-20 08:46 | disposition home or self-care (01) ==
LOC: DI 08:45
PROVIDERS: ATTEND Surgery
DX: N63.25 Unspecified lump in the left breast, overlapping quadrants (principal); R92.332 Mammographic heterogeneous density, left breast
CPT/HCPCS: 19083; 77065; J3490